=== PATIENT | female | born 1995 | race Caucasian/White ===

== ENCOUNTER → 2017-12-31 | Outpatient (CLI) | payer MEDICARE, OTHER ==
--- NOTE | 2017-12-31 16:15 | KCIC ---
MRI left knee without contrast dated 12/31/2017 3:30 PM Indication: Knee pain , recent softball injury , instability. Comparison: No comparison is available. Technique: Routine multiplanar multisequence imaging performed. . Findings: Bone marrow signal is homogeneous. No marrow edema. Articular cartilage is intact. No osteochondral defect. Small joint effusion. No intra-articular loose body. No significant popliteal cyst. The anterior cruciate ligament is intact. There is some mild increased signal in the ligament substance. No definite tear. There is also increased signal of the PCL with ill-definition of the mid PCL substance. No definite ligamentous retraction. Medial and lateral collateral complexes are intact. Iliotibial band, popliteus tendon and pes anserine complex within normal limits. Quadriceps and patellar tendon are intact. No abnormality of the medial or lateral retinaculum. There is mild lateral patellar subluxation with tibial tubercle to trochlear groove distance estimated at approximately 15 mm. Both menisci are normal in morphology and signal. No articular surface tear or perimeniscal cyst. IMPRESSION: 1. Abnormal signal and ill-definition of the mid substance. PCL, suggesting intermediate to high-grade partial tear. 2. Mild increased signal within the substance of the ACL without discrete tear. This could represent reactive edema or low-grade strain. Correlate with physical exam findings. 3. Small joint effusion. 4. No apparent meniscal tear. 5. Mild lateral patellar subluxation. Electronically signed by: Eddie Jon MD (12/31/2017 4:11 PM) [email or web address]
== END | disposition home or self-care (01) ==
LOC: KCIC MRI 15:22
PROVIDERS: ATTEND Orthopaedic Surgery
DX: S83.092A Other subluxation of left patella, initial encounter (principal); X58.XXXA Exposure to other specified factors, initial encounter; Y93.89 Activity, other specified; Y92.89 Other specified places as the place of occurrence of the external cause; Y99.8 Other external cause status
CPT/HCPCS: 73721